=== PATIENT | female | born 1990 | race Two or more races ===

== ENCOUNTER 2020-08-21 02:20 | Emergency (ER) | payer BC ==
[~2020-08-21] VITALS: Ht 144.8 cm; Wt 54.5 kg
[2020-08-21] MEDS ORDERED: IV NORMAL SALINE 1000ML BAG 1,000 ML IV ONE (02:45)
[2020-08-21 02:50] LABS: BILIRUBIN,URINE NEGATIVE (NEG); CLARITY,URINE CLEAR; COLOR,URINE YELLOW; NITRITE,URINE NEGATIVE (NEG); PH,URINE 5.5 (<5.0-8.0); PROTEIN,URINE NEGATIVE (NEG-TRACE); UROBILINOGEN,URINE 0.2 mg/dL (0.2 mg/dL)
--- NOTE | 2020-08-21 02:56 | PHYS DOC ---
Past Medical History Past Medical History: No Pertinent History Past Surgical History: No Surgical History Smoking Status: Never Smoker Alcohol Use: None General Adult EDM: Chief Complaint: PELVIC PAIN HPI: HPI: Patient is a 29 year old [f__sex] who presents with [] Review of Systems: Review of Systems: Constitutional: Denies fever or chills Eyes: Denies redness or eye pain HENT: Denies nasal congestion or sore throat Respiratory: Denies cough or shortness of breath Cardiovascular: Denies chest pain or palpitations GI: Denies abdominal pain, nausea, or vomiting : Denies dysuria or hematuria Musculoskeletal: Denies back pain or joint pain Integument: Denies rash or skin lesions Neurologic: Denies headache, focal weakness or sensory changes Complete systems were reviewed and found to be within normal limits, except as documented in this note. Current Medications: Current Medications Medications (Trade) Dose Ordered Sig/Catina Start Time Stop Time Status Last Admin Dose Admin Sodium Chloride 1,000 ml @ 1,000 mls/hr 1X ONCE 08/21/20 02:45 08/21/20 03:44 UNV Allergies: Allergies: Allergies Coded Allergies Type Severity Reaction Last Updated Verified No Known Drug Allergies 08/21/20 No Physical Exam: PE: Constitutional: Well developed, well nourished, no acute distress, non-toxic appearance HENT: Normocephalic, atraumatic Eyes: PERRL, EOMI, conjunctiva normal, no discharge Neck: Normal range of motion, no tenderness, supple Lungs & Thorax: No respiratory distress, equal chest rise and fall Abdomen: Soft, no tenderness Skin: Warm, dry, no erythema, no rash Back: No tenderness, no CVA tenderness Extremities: No tenderness, ROM intact, no edema Neurologic: Alert and oriented X 3, normal motor function, normal sensory function, no focal deficits noted Psychologic: Affect normal, judgment normal Current Patient Data: Labs: Laboratory Tests Test 08/21/20 02:33 POC Urine HCG, Qualitative Hcg positive (Negative) Vital Signs: Vital Signs Date Time Temp Pulse Resp B/P (MAP) Pulse Ox O2 Delivery O2 Flow Rate FiO2 08/21/20 02:25 97.6 109 20 146/73 (97) 97 Room Air 97.6 EKG: EKG: [] Radiology/Procedures: Radiology/Procedures: PROCEDURE: OB < 14 WKS Study: US PRE HYSTEROSALPINGOGRAM DATE: 08/21/2020 3:04 AM INDICATION: Vaginal bleeding in the setting of a known . COMPARISON: None. TECHNIQUE: Transabdominal ultrasonography of the pelvis was performed. Color Doppler and duplex were utilized as appropriate. FINDINGS: The uterus is measured at 9.1 x 6.5 x 5.4 cm. Intrauterine gestational sac that is normally marginated measuring 2 x 1.2 x 1.8 cm. Very small subchorionic hemorrhage measuring up to 0.5 cm. pole with a crown-rump length of 0.52 cm corresponding to an estimated gestational age of 6 weeks 2 days. heart rate of up to 128 bpm period yolk sac measures 0.3 cm. The right ovary measures 4.3 x 1.9 x 1.7 cm and the left ovary 2.5 x 1.8 x 1.7 cm. [place] right ovarian cystic focus measures up to 3.4 cm. No complex cyst or mass at the left adnexa. Normal Doppler flow is maintained bilaterally. Trace free fluid adjacent to the right ovary. IMPRESSION: 1. Single live intrauterine with an estimated gestational age of 6 weeks 2 days. Very small subchorionic hemorrhage extending along well less than 25 percent gestational sac circumference. Attention on follow-up if there is further vaginal bleeding. 2. Collapsing ovarian cyst on the right without complex features. Trace adnexal free fluid. Normal Doppler flow to both ovaries. Electronically signed by: ANA STRICKLAND MD (08/21/2020 4:30 AM) [facility] Course & Med Decision Making: Course & Med Decision Making Pertinent Labs and Imaging studies reviewed. (See chart for details) Patient stable for discharge with outpatient follow-up with PCP/OB-PHARMACY MANAGER. Discussed findings and plan with patient, who acknowledges understanding and agreement. Dragxiao Disclaimer: Dragxiao Disclaimer: This electronic medical record was generated, in whole or in part, using a voice recognition dictation system. Departure Departure Impression: Primary Impression: Vaginal bleeding during Additional Impression: Subchorionic hemorrhage Qualified Codes: O41.8X10 - Other specified disorders of amniotic fluid and membranes, first trimester, not applicable or unspecified; O46.8X1 - Other antepartum hemorrhage, first trimester Disposition: 01 DC HOME SELF CARE/HOMELESS Condition: STABLE Referrals: ANDRY BUSH Jr, MD Patient Instructions: - Rh Problems, RhoGAM, Subchorionic Hematoma Scripts Ondansetron (ONDANSETRON ODT) 4 Mg Tab.rapdis 1 TAB PO PRN Q6-8HRS PRN for NAUSEA, #16 TAB Prov: AINSLEY MAYORGA DO 08/21/20 Pnv No.122/Iron/Folic Acid ( Multi Tablet) 1 Each Tablet 1 TAB PO DAILY for 30 Days, #30 TAB 0 Refills Prov: AINSLEY MAYORGA DO 08/21/20 AINSLEY MAYORGA DO Aug 21, 2020 02:55
[2020-08-21 03:11] LABS: BACTERIA,URINE MODERATE /HPF (0-FEW); RBC,URINE 0 /HPF (0-2)
[2020-08-21 03:41] LABS: BASO # 0.1 x10^3/uL (0.0-0.2); BASO % 1 % (0-3); EOS % 0 % (0-3); HEMATOCRIT 42.9 % (36.0-47.0); HEMOGLOBIN 14.5 g/dL (12.0-15.5); LYMPH # 2.3 x10^3/uL (1.0-4.8); LYMPH % 23 % (24-48); MEAN CORPUSCULAR HEMOGLOBIN 29 pg (25-35); MEAN CORPUSCULAR HGB CONC 34 g/dL (31-37); MEAN CORPUSCULAR VOLUME 86 fL (79-100); MONO # 0.5 x10^3/uL (0.0-1.1); MONO % 5 % (0-9); NEUT # 7.3 x10^3/uL (1.8-7.7); NEUT % 71 % (31-73); PLATELET COUNT 242 x10^3/uL (140-400); RED BLOOD COUNT 5.01 x10^6/uL (3.50-5.40); RED CELL DISTRIBUTION WIDTH 14.3 % (11.5-14.5); WHITE BLOOD COUNT 10.3 x10^3/uL (4.0-11.0)
[2020-08-21 03:57] LABS: CALCIUM 8.9 mg/dL (8.5-10.1); CREATININE 0.7 mg/dL (0.6-1.0); GFR 100.4; POTASSIUM 4.1 mmol/L (3.5-5.1)
[2020-08-21 04:05] LABS: ALBUMIN 3.8 g/dL (3.4-5.0); TOTAL BILIRUBIN 0.2 mg/dL (0.2-1.0); TOTAL PROTEIN 7.6 g/dL (6.4-8.2)
--- NOTE | 2020-08-21 04:33 | RAD ---
Study: US PRE HYSTEROSALPINGOGRAM DATE: 08/21/2020 3:04 AM INDICATION: Vaginal bleeding in the setting of a known . COMPARISON: None. TECHNIQUE: Transabdominal ultrasonography of the pelvis was performed. Color Doppler and duplex were utilized as appropriate. FINDINGS: The uterus is measured at 9.1 x 6.5 x 5.4 cm. Intrauterine gestational sac that is normally marginate d measuring 2 x 1.2 x 1.8 cm. Very small subchorionic hemorrhage measuring up to 0.5 cm. pole w ith a crown-rump length of 0.52 cm corresponding to an estimated gestational age of 6 weeks 2 days. F etal heart rate of up to 128 bpm period yolk sac measures 0.3 cm. The right ovary measures 4.3 x 1.9 x 1.7 cm and the left ovary 2.5 x 1.8 x 1.7 cm. [place] right ovari an cystic focus measures up to 3.4 cm. No complex cyst or mass at the left adnexa. Normal Doppler hong w is maintained bilaterally. Trace free fluid adjacent to the right ovary. IMPRESSION: 1. Single live intrauterine with an estimated gestational age of 6 weeks 2 days. Very smal l subchorionic hemorrhage extending along well less than 25 percent gestational sac circumference. At tention on follow-up if there is further vaginal bleeding. 2. Collapsing ovarian cyst on the right without complex features. Trace adnexal free fluid. Normal D oppler flow to both ovaries. Electronically signed by: ANA STRICKLAND MD (08/21/2020 4:30 AM) [facility] [place]
[2020-08-21] MEDS ORDERED: PNV1TABL78 PO (04:53)
[2020-08-21] MEDS ORDERED: ONDA4TAB12 PO (04:53)
[2020-08-21 05:13] VITALS: BP 118/73
[2020-08-21 05:31] VITALS: BP 114/76
[2020-08-22 21:11] LABS: GC PROBE Negative (Negative)
== END 2020-08-21 05:40 | disposition home or self-care (01) ==
LOC: ER 02:20
DX: O46.8X1 Other antepartum hemorrhage, first trimester (principal); Z3A.01 Less than 8 weeks gestation of pregnancy
CPT/HCPCS: 36415; 36430; 76801; 80053; 81001; 81025; 83690; 84702; 85025; 86850; 86900; 86901; 87086; 87491; 87591; 96360; 99285; J2791; J7030; Q0111